=== PATIENT | female | born 1950 | race Caucasian/White ===

== ENCOUNTER → 2017-04-11 | Outpatient (CLI) | payer MEDICARE ==
--- NOTE | 2017-04-11 10:43 | MM ---
Reason for exam: follow-up at short interval from prior study. Last mammogram was performed 6 months ago. History: Patient is postmenopausal. Family history of premenopausal breast cancer in sister at age 46. Cyst aspiration of both breasts, 2000. Took hormonal contraceptives for 6 years. Took estrogen for 4 years beginning at age 47. Took progesterone for 4 years beginning at age 47. Physical Findings: Nurse did not find any significant physical abnormalities on exam. MG 3D Diag Mammo W/Cad RT CC, MLO, and LM view(s) were taken of the right breast. Prior study comparison: October 06, 2016, right breast MG 3d work up w/cad RT. September 22, 2016, bilateral MG 3d screening mammo w/cad. The breast tissue is heterogeneously dense. This may lower the sensitivity of mammography. Stable benign calcifications. These results were verbally communicated with the patient and result sheet given to the patient on 04/11/17. ASSESSMENT: Benign, BI-RAD 2 RECOMMENDATION: Return to routine screening mammogram schedule for both breasts. Back on schedule.
== END | disposition home or self-care (01) ==
LOC: RADMAMWWP 09:34
PROVIDERS: ATTEND Internal Medicine
DX: R92.8 Other abnormal and inconclusive findings on diagnostic imaging of breast (principal)
CPT/HCPCS: G0206; G0279

== ENCOUNTER → 2019-02-26 | Outpatient (CLI) | payer MEDICARE ==
--- NOTE | 2019-02-26 15:40 | BD ---
EXAMINATION TYPE: Axial Bone Density DATE OF EXAM: 02/26/2019 COMPARISON: 2016 CLINICAL HISTORY: Postmenopausal female. Osteoporosis screening. Height: 64 Weight: 140.1 FRAX RISK QUESTIONS: Alcohol (3 or more units per day): no Family History (Parent hip fracture): no Glucocorticoids (More than 3mos): no (Ex: prednisone, prednisolone, methylprednisolone, dexamethasone, and hydrocortisone). History of Fracture in Adulthood: yes Secondary Osteoporosis: 1. Type 1 Diabetes: no 2. Hyperthyroidism: no 3. Menopause before 45: no 4. Malnutrition: no 5. Chronic liver disease: no Rheumatoid Arthritis: no Current Tobacco Use: no RISK FACTORS HISTORY OF: Family History of Osteoporosis: no Active: yes Diet low in dairy products/other sources of calcium: no Postmenopausal woman: age 48 Lost more than 2 inches in height since high school: no MEDICATIONS: blood pressure, vit d, vit b, aspirin thyroid Medications: synthroid How Long: long time Additional History: EXAM MEASUREMENTS: Bone mineral densitometry was performed using the [email or web address] System. Bone mineral density as measured about the Lumbar spine is: ----- L1-L4(G/cm2): 0.977 T Score Values are as follows: ----- L2: -2.4 ----- L3: -2.0 ----- L4: -1.1 ----- L1-L4: -1.7 Bone mineral density has: increased 0.9 % since study of: 09.22.2016 Bone mineral density about the R hip (g/cm2): 0.860 Bone mineral density about the L hip (g/cm2): 0.811 T Score values are as follows: -----R Neck: -1.3 -----L Neck: -1.6 -----R Total: -1.2 -----L Total: -1.4 Bone mineral density has: increased 1.2 % since study of: 09.22.2016 IMPRESSION: Osteopenia (T Score between -2.5 and -1). There is slightly increased risk of fracture and the patient may be considered for treatment. Re-Screen 2-5 years. NOTE: T-SCORE=SD OF THE YOUNG ADULT MEAN.
--- NOTE | 2019-02-27 11:29 | MM ---
Reason for exam: screening (asymptomatic). Last mammogram was performed 1 year and 11 months ago. History: Patient is postmenopausal. Family history of premenopausal breast cancer in sister at age 46. Cyst aspiration of both breasts, 2000. Took hormonal contraceptives for 6 years. Took estrogen for 4 years beginning at age 47. Took progesterone for 4 years beginning at age 47. Physical Findings: A clinical breast exam by your physician is recommended on an annual basis and results should be correlated with mammographic findings. MG 3D Screening Mammo W/Cad Bilateral CC and MLO view(s) were taken. Prior study comparison: April 11, 2017, right breast MG 3d diag mammo w/cad RT. October 06, 2016, right breast MG 3d work up w/cad RT. The breast tissue is heterogeneously dense. This may lower the sensitivity of mammography. Benign appearing bilateral calcifications. No significant changes when compared with prior studies. ASSESSMENT: Benign, BI-RAD 2 RECOMMENDATION: Routine screening mammogram of both breasts in 1 year.
== END | disposition home or self-care (01) ==
LOC: RADMAMWWP 08:46
PROVIDERS: ATTEND Internal Medicine
DX: Z12.31 Encounter for screening mammogram for malignant neoplasm of breast (principal); M85.80 Other specified disorders of bone density and structure, unspecified site; Z78.0 Asymptomatic menopausal state
CPT/HCPCS: 77063; 77067; 77080

== ENCOUNTER → 2020-06-04 | Outpatient (CLI) | payer MEDICARE ==
--- NOTE | 2020-06-07 10:11 | MM ---
Reason for exam: screening (asymptomatic). Last mammogram was performed 1 year and 3 months ago. History: Patient is postmenopausal. Family history of premenopausal breast cancer in sister at age 46. Cyst aspiration of both breasts, 2000. Took hormonal contraceptives for 6 years. Took estrogen for 4 years beginning at age 47. Took progesterone for 4 years beginning at age 47. Physical Findings: A clinical breast exam by your physician is recommended on an annual basis and results should be correlated with mammographic findings. MG 3D Screening Mammo W/Cad Bilateral CC and MLO view(s) were taken. Prior study comparison: February 26, 2019, bilateral MG 3d screening mammo w/cad. April 11, 2017, right breast MG 3d diag mammo w/cad RT. The breast tissue is heterogeneously dense. This may lower the sensitivity of mammography. No significant changes when compared with prior studies. ASSESSMENT: Benign, BI-RAD 2 RECOMMENDATION: Routine screening mammogram of both breasts in 1 year.
== END | disposition home or self-care (01) ==
LOC: RADMAMWWP 08:02
PROVIDERS: ATTEND Internal Medicine
DX: Z12.31 Encounter for screening mammogram for malignant neoplasm of breast (principal)
CPT/HCPCS: 77063; 77067

== ENCOUNTER 2020-10-18 13:43 | Observation (INO) | payer MEDICARE ==
[2020-10-18] MEDS ORDERED: NITROGLYCERIN OINT 1 INCH/GM PACKET TOPICAL STA (14:19)
[2020-10-18] MEDS ORDERED: SODIUM CHLORIDE 0.9% 500 ML 500 ML IV STA (14:19)
[2020-10-18] MEDS ORDERED: ASPIRIN 81 MG PO STA (14:19)
--- NOTE | 2020-10-18 14:30 | ED ---
General Adult HPI - General Chief complaint: Chest Pain Stated complaint: Chest Pain Time Seen by Provider: 10/18/20 14:00 Source: patient, RN notes reviewed, old records reviewed Mode of arrival: ambulatory Limitations: no limitations - History of Present Illness Initial comments: This is a 69-year-old female with past medical history significant for high blood pressure. Patient comes in today complaining that she's had intermittent chest pain for the last 2 weeks per patient states she normally comes and lasts about an hour. Patient states the pain came this morning and his been ongoing ever since. Patient states it's a pressure sensation. Patient denies any difficulty breathing shortest breath. Patient states her heart rate was 140 beats a minute. Patient denies any fever chills or cough. Patient denies abdominal pain patient has nausea vomiting diarrhea. Patient states the pain is still persistent now. Patient denies any swelling to the legs or calf tenderness. - Related Data Home Medications Medication Instructions Recorded Confirmed Aspirin 81 mg PO HS 04/08/15 10/18/20 Cholecalciferol [Vitamin D3] 1,000 unit PO HS 04/08/15 10/18/20 Losartan/Hydrochlorothiazide 1 tab PO DAILY 04/08/15 10/18/20 [Losartan-Hctz 100-12.5 mg Tab] Potassium Chloride ER [K-Dur 10] 10 meq PO HS 04/08/15 10/18/20 Levothyroxine Sodium [Synthroid] 75 mcg PO DAILY 10/18/20 10/18/20 Omeprazole 20 mg PO DAILY PRN 10/18/20 10/18/20 Vitamin B Complex 1 cap PO HS 10/18/20 10/18/20 Allergies Allergy/AdvReac Type Severity Reaction Status Date / Time No Known Allergies Allergy Verified 10/18/20 15:20 Review of Systems ROS Statement: Those systems with pertinent positive or pertinent negative responses have been documented in the HPI. ROS Other: All systems not noted in ROS Statement are negative. Past Medical History Past Medical History: Hypertension, Thyroid Disorder Additional Past Medical History / Comment(s): Arun thyroid disorder History of Any Multi-Drug Resistant Organisms: None Reported Past Surgical History: Section Additional Past Surgical History / Comment(s): breasts aspirations, colonoscopy Past Anesthesia/Blood Transfusion Reactions: No Reported Reaction, Unable to Obtain Past Psychological History: No Psychological Hx Reported Smoking Status: Never smoker Past Alcohol Use History: Occasional Past Drug Use History: None Reported - Past Family History Mother Family Medical History: Cancer Sister(s) Family Medical History: Cancer Additional Family Medical History / Comment(s): breast General Exam - General Exam Comments Initial Comments: GENERAL: Patient is well-developed and well-nourished. Patient is nontoxic and well- hydrated and is in mild distress. ENT: Neck is soft and supple. No significant lymphadenopathy is noted. Oropharynx is clear. Moist mucous membranes. Neck has full range of motion without eliciting any pain. EYES: The sclera were anicteric and conjunctiva were pink and moist. Extraocular movements were intact and pupils were equal round and reactive to light. Eyelids were unremarkable. PULMONARY: Unlabored respirations. Good breath sounds bilaterally. No audible rales rhonchi or wheezing was noted. CARDIOVASCULAR: There is a regular rate and rhythm without any murmurs gallops or rubs. ABDOMEN: Soft and nontender with normal bowel sounds. SKIN: Skin is clear with no lesions or rashes and otherwise unremarkable. NEUROLOGIC: Patient is alert and oriented x3. Cranial nerves II through XII are grossly intact. Motor and sensory are also intact. Normal speech, volume and content. Symmetrical smile. MUSCULOSKELETAL: Normal extremities with adequate strength and full range of motion. LYMPHATICS: No significant lymphadenopathy is noted PSYCHIATRIC: Normal psychiatric evaluation. Limitations: no limitations Course Vital Signs 10/18/20 10/18/20 10/18/20 13:57 14:37 15:08 Temperature 98.2 F Pulse Rate 92 70 Respiratory 18 16 Rate Blood Pressure 155/90 129/73 O2 Sat by Pulse 95 95 99 Oximetry Medical Decision Making - Medical Decision Making EKG shows sinus rhythm with occasional PVC at 95 bpm ME interval is 138 QRS is 82 QT interval 344 QTC is 432. Patient's EKG shows no ST segment elevation or depression but does show multiple PVCs. Chest x-ray shows no acute abnormality - Lab Data Result diagrams: 10/18/20 14:27 10/18/20 14:27 Lab Results 10/18/20 10/18/20 10/18/20 Range/Units 14:27 14:27 14:27 WBC 7.6 (3.8-10.6) k/uL RBC 5.00 (3.80-5.40) m/uL Hgb 15.7 (11.4-16.0) gm/dL Hct 45.7 (34.0-46.0) % MCV 91.4 (80.0-100.0) fL MCH 31.3 (25.0-35.0) pg MCHC 34.3 (31.0-37.0) g/dL RDW 12.4 (11.5-15.5) % Plt Count 249 (150-450) k/uL MPV 7.6 Neutrophils % 63 % Lymphocytes % 24 % Monocytes % 8 % Eosinophils % 2 % Basophils % 1 % Neutrophils # 4.8 (1.3-7.7) k/uL Lymphocytes # 1.9 (1.0-4.8) k/uL Monocytes # 0.6 (0-1.0) k/uL Eosinophils # 0.1 (0-0.7) k/uL Basophils # 0.1 (0-0.2) k/uL PT 10.5 (9.0-12.0) sec INR 1.0 (<1.2) APTT 22.9 (22.0-30.0) sec D-Dimer 0.18 (<0.60) mg/L FEU Sodium 137 (137-145) mmol/L Potassium 3.7 (3.5-5.1) mmol/L Chloride 102 (98-107) mmol/L Carbon Dioxide 29 (22-30) mmol/L Anion Gap 6 mmol/L BUN 17 (7-17) mg/dL Creatinine 0.84 (0.52-1.04) mg/dL Est GFR (CKD-EPI)AfAm 81 (>60 ml/min/1.73 sqM) Est GFR (CKD-EPI)NonAf 70 (>60 ml/min/1.73 sqM) Glucose 103 H (74-99) mg/dL Calcium 9.8 (8.4-10.2) mg/dL Magnesium 2.1 (1.6-2.3) mg/dL Total Bilirubin 0.8 (0.2-1.3) mg/dL AST 27 (14-36) U/L ALT 18 (4-34) U/L Alkaline Phosphatase 67 (38-126) U/L Troponin I (0.000-0.034) ng/mL NT-Pro-B Natriuret Pep pg/mL Total Protein 7.3 (6.3-8.2) g/dL Albumin 4.5 (3.5-5.0) g/dL 10/18/20 10/18/20 Range/Units 14:27 14:27 WBC (3.8-10.6) k/uL RBC (3.80-5.40) m/uL Hgb (11.4-16.0) gm/dL Hct (34.0-46.0) % MCV (80.0-100.0) fL MCH (25.0-35.0) pg MCHC (31.0-37.0) g/dL RDW (11.5-15.5) % Plt Count (150-450) k/uL MPV Neutrophils % % Lymphocytes % % Monocytes % % Eosinophils % % Basophils % % Neutrophils # (1.3-7.7) k/uL Lymphocytes # (1.0-4.8) k/uL Monocytes # (0-1.0) k/uL Eosinophils # (0-0.7) k/uL Basophils # (0-0.2) k/uL PT (9.0-12.0) sec INR (<1.2) APTT (22.0-30.0) sec D-Dimer (<0.60) mg/L FEU Sodium (137-145) mmol/L Potassium (3.5-5.1) mmol/L Chloride (98-107) mmol/L Carbon Dioxide (22-30) mmol/L Anion Gap mmol/L BUN (7-17) mg/dL Creatinine (0.52-1.04) mg/dL Est GFR (CKD-EPI)AfAm (>60 ml/min/1.73 sqM) Est GFR (CKD-EPI)NonAf (>60 ml/min/1.73 sqM) Glucose (74-99) mg/dL Calcium (8.4-10.2) mg/dL Magnesium (1.6-2.3) mg/dL Total Bilirubin (0.2-1.3) mg/dL AST (14-36) U/L ALT (4-34) U/L Alkaline Phosphatase (38-126) U/L Troponin I <0.012 (0.000-0.034) ng/mL NT-Pro-B Natriuret Pep 61 pg/mL Total Protein (6.3-8.2) g/dL Albumin (3.5-5.0) g/dL Critical Care Time Critical Care Time: Yes Total Critical Care Time: 35 Disposition Clinical Impression: Unstable angina pectoris, Rapid heart rate Disposition: ADMITTED IP TO THIS HOSP Referrals: Tk Valiente MD [Primary Care Provider] - 1-2 days Time of Disposition: 16:37
--- NOTE | 2020-10-18 14:45 | XR ---
EXAMINATION TYPE: XR chest 2V DATE OF EXAM: 10/18/2020 COMPARISON: NONE TECHNIQUE: PA and lateral views submitted. HISTORY: Chest pain FINDINGS: The lungs are clear and there is no pneumothorax, pleural effusion, or focal pneumonia. Hyperinflat ion compatible COPD. Curvature of the spine. Heart size normal with no overt failure. Mild degenerati ve change of the spine. Diffuse osteopenia and arthropathy of the shoulder. IMPRESSION: 1. No acute process. Correlate for COPD.
[2020-10-18 14:47] LABS: Basophils # (A) 0.1 k/uL (0-0.2); Basophils % (A) 1 %; Eosinophils # (A) 0.1 k/uL (0-0.7); Eosinophils % (A) 2 %; HCT 45.7 % (34.0-46.0); HGB 15.7 gm/dL (11.4-16.0); Lymphocytes # (A) 1.9 k/uL (1.0-4.8); Lymphocytes % (A) 24 %; MCH 31.3 pg (25.0-35.0); MCHC 34.3 g/dL (31.0-37.0); MCV 91.4 fL (80.0-100.0); Mean Platelet Volume 7.6; Monocytes # (A) 0.6 k/uL (0-1.0); Monocytes % (A) 8 %; Neutrophils # (A) 4.8 k/uL (1.3-7.7); Neutrophils % (A) 63 %; Platelet Count 249 k/uL (150-450); RDW 12.4 % (11.5-15.5); WBC 7.6 k/uL (3.8-10.6)
[2020-10-18 14:53] LABS: Albumin 4.5 g/dL (3.5-5.0); Calcium 9.8 mg/dL (8.4-10.2); Magnesium 2.1 mg/dL (1.6-2.3); Potassium 3.7 mmol/L (3.5-5.1); Total Bilirubin 0.8 mg/dL (0.2-1.3); Total Protein 7.3 g/dL (6.3-8.2)
[2020-10-18 14:58] LABS: D-Dimer 0.18 mg/L FEU (<0.60); Partial Thromboplastin Time 22.9 sec (22.0-30.0); Prothrombin Time 10.5 sec (9.0-12.0)
[2020-10-18] MEDS ORDERED: NITROGLYCERIN SL TABS 0.4 MG TAB SUBLINGUAL PRN (16:37)
[2020-10-18] MEDS ORDERED: HEPARIN SODIUM,PORCINE 5,000 UNIT/ML 1 ML VIAL IV ONE (16:37)
[2020-10-18] MEDS ORDERED: HEPARIN SOD,PORK IN 0.45% NACL 25,000 UNIT in 0.45% NACL 1 250ML.BAG IV SCH (16:45)
[2020-10-18] MEDS ORDERED: SODIUM CHLORIDE 0.9% 1,000 ML IV SCH (17:30)
[2020-10-18] MEDS: NITROGLYCERIN OINT 1 INCH/GM PACKET TOPICAL SCH ×2 (18:09→23:56)
[2020-10-18 18:49] VITALS: RESP 16
[2020-10-19] MEDS ORDERED: PANTOPRAZOLE 40 MG TABLET PO PRN (05:38)
[2020-10-19] MEDS: NITROGLYCERIN OINT 1 INCH/GM PACKET TOPICAL SCH (06:12)
[2020-10-19] MEDS ORDERED: LEVOTHYROXINE 75 MCG TAB PO SCH (06:30)
[2020-10-19 08:42] LABS: Cholesterol 178 mg/dL (<200); HDL Cholesterol 80 mg/dL (40-60); LDL Cholesterol,Calculated 87 mg/dL (0-99); Triglycerides 55 mg/dL (<150)
[2020-10-19] MEDS ORDERED: LOSARTAN 50 MG TAB PO SCH (09:00)
[2020-10-19] MEDS ORDERED: LOSARTAN-HCTZ 50-12.5 MG 1 EACH TAB PO SCH (09:00)
[2020-10-19] MEDS ORDERED: ASPIRIN 325 MG TAB PO SCH (09:00)
--- NOTE | 2020-10-19 09:34 | CONS ---
CONSULTATION Mrs. Miller is a 69-year-old female with history of hypertension who presented with symptoms of chest discomfort. She has been having discomfort in the chest for the last 2 weeks, at times lasting for about an hour, not activity related and not associated with any other symptoms. Yesterday while standing, baking cookies, she had discomfort, became shaky, checked her blood pressure that was elevated for her and subsequently was evaluated and admitted. The patient walks daily for 4 miles and had no associated chest discomfort. She has no dyspnea on exertion. No palpitation. No syncope. No PND, orthopnea, or peripheral edema. She has no prior cardiac history. Initially, she took proton pump inhibitor for about a week without significant change in her symptoms. Her coronary risk factors are remarkable for hypertension, she is nondiabetic, nonsmoker and no prior history of documented hyperlipidemia. MEDICATION: At home include losartan HCT 100-12.5 mg daily, omeprazole on a p.r.n. basis, levothyroxine, aspirin 81 mg daily, vitamin D and vitamin B. REVIEW OF SYSTEMS: RESPIRATORY SYSTEM: She has no documented history of asthma or emphysema or bronchitis. GI SYSTEM: She has prior history of gastric reflux disease. No recent GI bleeding. SYSTEM: No dysuria or hematuria. NERVOUS SYSTEM: No stroke or seizure. PHYSICAL EXAMINATION: A 69-year-old female, alert, oriented, in no apparent distress. Blood pressure 120/70 with a heart rate in the 60s. HEAD: Normocephalic. EYES: Sclerae nonicteric. NECK: Good upstroke, no bruit, no venous distension. LUNGS: Clear to auscultation. HEART: Regular rate and rhythm, S1, S2. No S3, plus S4, no rub. ABDOMEN: Soft, nontender, positive bowel sounds, no organomegaly. EXTREMITIES: No edema, intact pulses. LAB DATA: Revealed troponin less than 0.012. Hemoglobin 15.7, BUN and creatinine 17 and 0.84. EKG revealed a sinus mechanism, rate of 95, frequent single PVCs, no acute ST-segment changes. Chest x-ray revealed no evidence of acute infiltrate. IMPRESSION: 1. Chest discomfort of unclear etiology has some atypical features for ischemic heart disease. 2. History of hypertension. RECOMMENDATION: I would recommend to stop the heparin and nitrate and proceed with a stress echocardiogram and depending on those results, further recommendation will be made. I have discussed those findings with the patient and she has full understanding and agreement. Thank you for this consult. Will follow with you. MMODL / IJN: [id number] /
[2020-10-19 10:08] VITALS: BP 132/69; PULSE 59; TEMP 98
--- NOTE | 2020-10-19 11:34 | ECHOF ---
Referral Reason:cp MEASUREMENTS -------- HEIGHT: 162.6 cm WEIGHT: 86.2 kg BP: RVIDd: 2.7 cm (< 3.3) IVSd: 1.0 cm (0.6 - 1.1) LVIDd: 4.0 cm (3.9 - 5.3) LVPWd: 1.1 cm (0.6 - 1.1) IVSs: 1.3 cm LVIDs: 2.3 cm LVPWs: 1.1 cm LA Diam: 3.1 cm (2.7 - 3.8) LAESV Index (A-L): 22.29 ml/m Ao Diam: 3.3 cm (2.0 - 3.7) AV Cusp: 1.7 cm (1.5 - 2.6) MV EXCURSION: 15.488 mm (> 18.000) MV EF SLOPE: 101 mm/s (70 - 150) EPSS: 0.4 cm MV E Eloy: 0.73 m/s MV DecT: 216 ms MV A Eloy: 0.71 m/s MV E/A Ratio: 1.04 RAP: 5.00 mmHg RVSP: 34.05 mmHg FINDINGS -------- Sinus rhythm. This was a technically adequate study. The left ventricular size is normal. There is mild concentric left ventricular hypertrophy. Overa ll left ventricular systolic function is normal with, an EF between 55 - 60 %. The right ventricle is normal in size. Normal LA size by volume 22+/-6 ml/m2. The right atrial size is normal. The aortic valve is trileaflet, and appears structurally normal. No aortic stenosis or regurgitation. The mitral valve is normal. Mild mitral regurgitation is present. The tricuspid valve appears structurally normal. Mild tricuspid regurgitation present. Right vent ricular systolic pressure is normal at < 35 mmHg. The right ventricular systolic pressure, as measu red by Doppler, is 34.05mmHg. There is no pulmonic regurgitation present. The aortic root size is normal. There is no pericardial effusion. CONCLUSIONS -------- 1. There is mild concentric left ventricular hypertrophy. 2. Overall left ventricular systolic function is normal with, an EF between 55 - 60 %. 3. Normal LA size by volume 22+/-6 ml/m2. 4. The aortic valve is trileaflet, and appears structurally normal. No aortic stenosis or regurgitati on. 5. Mild mitral regurgitation is present. 6. Mild tricuspid regurgitation present. 7. There is no pericardial effusion. ROUNDSMAN: Sonja Young RDCS
--- NOTE | 2020-10-19 13:34 | ECHOS ---
STRESS ECHOCARDIOGRAM LUMASON: N/A Vial INDICATIONS: Chest pressure MEDICATIONS: BASELINE HEART RATE: 64 BASELINE BLOOD PRESSURE: 133/60 MAXIMUM HEART RATE: 162 MAXIMUM BLOOD PRESSURE: 200/66 85% MPHR: 127 100% MPHR: 149 METS: N/A MAXIMUM STAGE REACHED: 3 TOTAL EXERCISE TIME: 7:29 CLINICAL INFORMATION: Baseline rhythm is sinus mechanism, rate of 64, normal axis and intervals. Normal echocardiogram. Baseline blood pressure 133/68 mmHg. Patient exercised on Gary protocol for 7 minute 29 seconds reaching peak rate 162 beats per minute which is above her 100% maximum predicted heart rate. Peak blood pressure 200/66 mmHg. Test was terminated due to fatigue. There was no chest pain. Electrocardiograph monitoring revealed no evidence of diagnostic ischemic ST deviation, rare PVCs with couplets were noted at peak exercise. FINDINGS: Baseline echocardiogram revealed normal wall motion. At peak exercise, there was normal wall motion augmentation with no hypokinesis or dyskinesis. CONCLUSION: 1. Good exercise tolerance with normal echocardiograph response to exercise with occasional PVCs and rare couplets. 2. Normal stress echocardiogram with no evidence of stress-induced ischemia. MMODL / IJN: [id number] /
[2020-10-19] MEDS ORDERED: METOPROLOL SUCCINATE (ER) 25 MG TAB.ER.24H PO SCH (21:00)
[2020-10-19] MEDS ORDERED: POTASSIUM CHLORIDE ER 10 MEQ TAB.ER.PRT PO SCH (21:00)
[2020-10-19] MEDS ORDERED: ASPIRIN 81 MG PO SCH (21:00)
[2020-10-19] MEDS ORDERED: CHOLECALCIFEROL 1,000 UNIT TAB PO SCH (21:00)
[2020-10-19] MEDS ORDERED: NON FORMULARY DRUG (Vitamin B Complex [Vitamin B Complex] 1 EACH Capsule) PO SCH (21:00)
--- NOTE | 2020-10-20 07:36 | P.HPIM ---
History of Present Illness H&P Date: 10/19/20 Chief Complaint: chest pain HISTORY AND PHYSICAL AND DISCHARGE SUMMARY This is a 69 year old female with a previous medical history signi ficant for hypertension and hypertensive cardiovascular disease, hyperlipidemia, hypothyroidism, with prior history of Arun thyroiditis, presented to my office yesterday with increased palpitations and heaviness in her chest for the past week and she became worried so she came to the office and her EKG showed sinus tachycardia, with non specific T waves changes, when she ambulates her cortes rate goes in the 140 rand, she was sent to the ER for evaluation of possible PE vs unstable angina and her D-Dimer came back negative and she was admitted to the hospital for evaluation by cardiology, the rest of abdirahman labs including her Troponins were negative. Patient was seen in consultation by Dr. Zurita. Echocardiogram reveals EF 55 - 60%, mild concentric LVH, Mild MR, mild TR. Patient also underwent stress echocardiogram that was normal and patient was cleared for discharge. Patient was discharged today in stable condition. Review of Systems Constitutional: Denies anorexia, Denies chronic headaches, Denies lethargy, Denies weakness Eyes: denies blurred vision, denies bulging eye, denies decreased vision Ears, nose, mouth and throat: Denies dysphagia, Denies neck lump, Denies sore throat Cardiovascular: Reports chest pain, Reports dyspnea on exertion, Reports rapid heart beat, Reports shortness of breath, Denies decreased exercise tolerance, Denies leg edema, Denies lightheadedness, Denies syncope Respiratory: Denies congestion, Denies cough with sputum, Denies home oxygen, Denies sleep apnea, Denies snoring, Denies wheezing Gastrointestinal: Denies abdominal pain, Denies bloating, Denies BRBPR, Denies excessive gas, Denies loss of appetite, Denies melena, Denies nausea, Denies vomiting Genitourinary: Denies dysuria, Denies nocturia Menstruation: Reports postmenopausal Musculoskeletal: absent: ankle pain, ankle stiffness, ankle swelling, elbow pain, elbow stiffness, elbow swelling, foot pain, foot stiffness, foot swelling, hand pain, hand stiffness, hand swelling, hip pain, hip stiffness, hip swelling, knee pain, knee stiffness, knee swelling, shoulder pain, shoulder stiffness, shoulder swelling, wrist pain, wrist stiffness, wrist swelling Integumentary: Denies pruritus, Denies rash Neurological: Denies numbness, Denies weakness Psychiatric: Denies anxiety, Denies depression Endocrine: Denies fatigue, Denies weight change Past Medical History Past Medical History: GERD/Reflux, Hyperlipidemia, Hypertension, Osteoarthritis (OA), Thyroid Disorder Additional Past Medical History / Comment(s): Arun thyroid disorder History of Any Multi-Drug Resistant Organisms: None Reported Past Surgical History: Section Additional Past Surgical History / Comment(s): breasts aspirations, colonoscopy 2011, 3 C-Sections,right inguinal hernia repair. Past Anesthesia/Blood Transfusion Reactions: No Reported Reaction, Unable to Obtain Past Psychological History: No Psychological Hx Reported Smoking Status: Never smoker Past Alcohol Use History: Occasional Past Drug Use History: None Reported - Past Family History Mother Family Medical History: Cancer (Mother at the age of 64 from ovarian canc er.) Sister(s) Family Medical History: Cancer (Patient has 2 sisters one with breast cancer and one with hypertension.) Additional Family Medical History / Comment(s): breast Brother(s) Family Medical History: Diabetes Mellitus (patient has 2 brothers one with DM2 and the other one is ok.) Father Family Medical History: Vascular Disorder (Father at the age of 45 from brain aneurysm.) Daughter(s) Family Medical History: No Reported History (patient has 2 daughters with no health issues.) Son(s) Family Medical History: No Reported History (one son ok) Medications and Allergies Home Medications Medication Instructions Recorded Confirmed Type Aspirin 81 mg PO HS 04/08/15 10/18/20 History Cholecalciferol [Vitamin D3 (25 1,000 unit PO HS 04/08/15 10/18/20 History Mcg = 1000 Iu)] Losartan/Hydrochlorothiazide 1 tab PO DAILY 04/08/15 10/18/20 History [Losartan-Hctz 100-12.5 mg Tab] Potassium Chloride ER [K-Dur 10] 10 meq PO HS 04/08/15 10/18/20 History Levothyroxine Sodium [Synthroid] 75 mcg PO DAILY 10/18/20 10/18/20 History Omeprazole 20 mg PO DAILY PRN 10/18/20 10/18/20 History Vitamin B Complex 1 cap PO HS 10/18/20 10/18/20 History Metoprolol Succinate (ER) [Toprol 25 mg PO HS #30 tab.er.24h 10/19/20 Rx XL] Allergies Allergy/AdvReac Type Severity Reaction Status Date / Time No Known Allergies Allergy Verified 10/18/20 15:20 Physical Exam Vitals: Vital Signs Temp Pulse Pulse Resp BP BP Pulse Ox 10/18/20 21:00 97.7 F 62 16 132/72 99 10/18/20 18:33 98.1 F 65 16 147/74 97 10/18/20 18:14 97.8 F 74 18 138/74 97 10/18/20 16:38 66 16 136/80 97 10/18/20 15:08 70 16 129/73 99 10/18/20 14:37 95 10/18/20 13:57 98.2 F 92 18 155/90 95 Intake and Output 10/18/20 10/18/20 10/19/20 14:59 22:59 06:59 Intake Total 59.085 Balance 59.085 Intake: Intake, IV Titration 59.085 Amount Heparin Sod,Pork in 0.45% 59.085 NaCl 25,000 unit In 0.45 % NaCl 1 250ml.bag @ 12 UNITS/KG/HR 7.076 mls/hr IV .Q24H [facility] Rx#: [id number] Other: Weight 58.967 kg 58.967 kg Physical Examination: HEENT: head is atraumatic normocephalic pupils were equal round reactive to light and accommodations extra ocular muscle movements were intact. Neck: supple, no JVP. Chest: clear to auscultation bilaterally there is no crakles or wheezes, no chest wall tenderness or intercostal retraction. Heart: First heart sound is depressed, second heart sound is normal there is no gallop or murmur. Abdomen: soft non tender non distended positive bowl sounds. Extremities: there is no edema no calf tenderness DP +2 bilaterally. Neurologic examination: patient is awake alert and oriented X 3 CN II-XII are grossly intact, muscle power 5/5 in bilateral upper and lower extremities, deep tendon reflexes were normal. Results CBC & Chem 7: 10/18/20 14:27 10/18/20 14:27 Labs: Abnormal Lab Results - Last 24 Hours (Table) 10/18/20 10/18/20 Range/Units 14:27 23:01 APTT 118.2 H* (22.0-30.0) sec Glucose 103 H (74-99) mg/dL Thrombosis Risk Factor Assmnt - DVT/VTE Prophylaxis DVT/VTE Prophylaxis: Pharmacologic Prophylaxis ordered - Choose All That Apply Each Risk Factor Represents 2 Points: Age 61-74 years Thrombosis Risk Factor Assessment Total Risk Factor Score: 2 Thrombosis Risk Factor Assessment Level: Low Risk Assessment and Plan Assessment: Assessment and plan: 1. Unstable angina with palpitations.we will discontinue heparin drip as her cardiac enzymes are normal we will arrange for stress echo and if negative she can be discharged home, we will add small dose dose of Toprol XL 25 mg at bedtime post cardiac evaluation. 2. Hypertension and hypertensive cardiovascular disease. we will continue with Losartan 50/12.5 mg orally daily, and we will add Toprl XL 25 mg orally daily. 3. Hyperlipidemia. we will continue with low cholesterol diet and Lipitor 20 mg orally daily. 4. GERD. we will continue with Protonix 40 mg orally daily. 5. Hypothyroidism. we will continue with Synthroid 75 mcg orally daily. 6. Vitamin D deficiency. we will continue with vitamin D supplement 1000 units orally daily. 7. DVT prophylaxis. on heparin drip. 8. GI prophylaxis. we will continue with PPI. 9. Observation.
== END 2020-10-19 14:25 | disposition home or self-care (01) ==
LOC: EC 13:43 → 1SOBS 16:37
PROVIDERS: ADMIT Internal Medicine; ATTEND Internal Medicine
DX: I20.0 Unstable angina (principal); R00.2 Palpitations; R00.0 Tachycardia, unspecified; E06.3 Autoimmune thyroiditis; I11.9 Hypertensive heart disease without heart failure; E78.5 Hyperlipidemia, unspecified; E55.9 Vitamin D deficiency, unspecified; E03.9 Hypothyroidism, unspecified; I49.3 Ventricular premature depolarization; K21.9 Gastro-esophageal reflux disease without esophagitis; M19.90 Unspecified osteoarthritis, unspecified site; Z79.82 Long term (current) use of aspirin; Z79.890 Hormone replacement therapy; Z79.899 Other long term (current) drug therapy; Z80.3 Family history of malignant neoplasm of breast; Z80.41 Family history of malignant neoplasm of ovary; Z82.49 Family history of ischemic heart disease and other diseases of the circulatory system; Z83.3 Family history of diabetes mellitus
CPT/HCPCS: 93005 ×2; 96366 ×3; 96376; 96361; 96365; 99291; 36415; 93306; 93351; 85379; 83880; 80061; 80053; 83735; 84484; 85025; 85610; 85730 ×2; 71046; G0378 ×2; J1644 ×2

== ENCOUNTER 2021-02-15 07:58 | Day surgery (SDC) | payer MEDICARE ==
[2021-02-11 13:16] VITALS: BMI 24.0
[~2021-02-15 07:58] MED LIST: LACTATED RINGERS 1,000 ML IV SCH; LIDOCAINE 1% (10MG/ML) FOR IV START INTRADERMA PRN
[2021-02-15 08:26] VITALS: TEMP 98
[2021-02-15] MEDS ORDERED: LACTATED RINGERS 1,000 ML IV ONE (08:26)
[2021-02-15] MEDS ORDERED: PROPOFOL 10 MG/ML 20 ML VIAL IV ONE (09:12)
[2021-02-15] MEDS ORDERED: LIDOCAINE 1% INJ 10MG/ML (20 ML MDV) ONE (09:12)
--- NOTE | 2021-02-15 09:37 | P.PCN ---
Date of Procedure: 02/15/21 Description of Procedure: BRIEF HISTORY: Patient is a 70-year-old female presenting for outpatient esophagogastroduodenoscopy for evaluation of symptoms of GERD with esophagitis. Previously she had an EGD performed in 2016 with findings of small hiatal hernia and LA grade a reflux esophagitis and gastritis. Previously she was on Prilosec. She has been having episodes of pill-induced dysphagia and epigastric pain with a negative cardiac workup. PROCEDURE PERFORMED: Esophagogastroduodenoscopy with biopsy. PREOPERATIVE DIAGNOSIS: GERD with esophagitis, dysphagia. ESTIMATED BLOOD LOSS: Minimal. IV sedation per anesthesia. PROCEDURE: After informed consent was obtained, the patient was brought into the endoscopy unit. IV sedation was administered by Anesthesia under continuous monitoring. Initially the Olympus GIF-190 video endoscope was inserted into the mouth. Esophagus intubated without any difficulty. It was gradually advanced into the stomach and duodenum and carefully examined. The bulb and the second part of the duodenum appeared normal with biopsies. The scope at this time was withdrawn to the stomach, adequately insufflated with air, and upon careful examination, mucosa of the antrum, body, cardia and the fundus appeared normal, mild scattered erythema suggestive of mild gastritis of the antrum and body with biopsies taken. The scope was then withdrawn into the esophagus. The GE junction was located at 36 cm from the incisors and biopsied. A 3 cm hiatal hernia was noted . The esophagus appeared normal, With mid esophageal biopsies taken in the setting of dysphagia. There were no erosions or ulcerations seen and the patient tolerated the procedure well. IMPRESSION: 1. Mild gastritis . 2. Moderate hiatal hernia. 3. Biopsies of the duodenum, antrum body and GE junction and mid esophagus. RECOMMENDATIONS: The findings of this examination were discussed with the patient .and her . Okay to resume diet. Okay to resume medications. Await pathology from biopsies. Continue daily Nexium therapy.
[2021-02-15 09:48] VITALS: BP 126/69; PULSE 60; RESP 16
== END 2021-02-15 10:05 | disposition home or self-care (01) ==
LOC: ORWHC2ENDO 07:58
PROVIDERS: ATTEND Internal Medicine
DX: K29.50 Unspecified chronic gastritis without bleeding (principal); K44.9 Diaphragmatic hernia without obstruction or gangrene; K21.00 Gastro-esophageal reflux disease with esophagitis, without bleeding; R13.10 Dysphagia, unspecified; I10 Essential (primary) hypertension; E07.9 Disorder of thyroid, unspecified; Z79.890 Hormone replacement therapy; Z79.899 Other long term (current) drug therapy
CPT/HCPCS: 88305; 43239; J2001; J2704

== ENCOUNTER → 2021-06-22 | Outpatient (CLI) | payer MEDICARE ==
--- NOTE | 2021-06-22 16:04 | BD ---
EXAMINATION TYPE: Axial Bone Density DATE OF EXAM: 06/22/2021 COMPARISON: 02.26.2019 CLINICAL HISTORY: 70 YR OLD FEMALE...ICD-10 CODE: M81.0 OSTEOPOROSIS Height: 62.4 Weight: 132 FRAX RISK QUESTIONS: History of Fracture in Adulthood: YES RISK FACTORS HISTORY OF: FOOT FX AN ADULT Postmenopausal woman: YES, AT AGE 50 YRS OLD Take estrogen and/or progesterone medications: YES, IN THE PAST FOR ABOUT 2-3 YRS Hyperparathyroidism: YES, NODULE Adrenal Insufficiency: NO MEDICATIONS: Thyroid Medications: YES, FOR ABOUT 10 YRS Additional Medications: BP MEDS, REFLUX MEDS, VIT D Additional History: ROSA'S DISEASE, REFLUX, HYPERTENSION, EXAM MEASUREMENTS: Bone mineral densitometry was performed using the SEAT 4a System. Bone mineral density as measured about the Lumbar spine is: ----- L1-L4(G/cm2): 0.902 T Score Values are as follows: ----- L1: -2.1 ----- L2: -3.3 ----- L3: -2.7 ----- L4: -1.6 ----- L1-L4: -2.3 Bone mineral density has: Decreased -7.8% since study of: 02.26.2019 Bone mineral density about the R hip (g/cm2): 0.859 Bone mineral density about the L hip (g/cm2): 0.835 T Score values are as follows: -----R Neck: -1.0 -----L Neck: -1.7 -----R Total: -1.2 -----L Total: -1.4 Bone mineral density has: Decreased -0.4% since study of: 02.26.2019 FRAX%s: THERE IS A 17.0% CHANCE FOR A MAJOR OSTEOPOROTIC FX AND A 3.1% FOR HIP......PROBABILITY F OR FX IN 10 YRS TIME IMPRESSION: Osteopenia (T Score between -2.5 and -1). There is slightly increased risk of fracture and the patient may be considered for treatment. Re-Screen 2-5 years. NOTE: T-SCORE=SD OF THE YOUNG ADULT MEAN.
== END | disposition home or self-care (01) ==
LOC: RADBDWWP 07:41
PROVIDERS: ATTEND Internal Medicine
DX: M85.89 Other specified disorders of bone density and structure, multiple sites (principal)
CPT/HCPCS: 77080

== ENCOUNTER → 2021-08-02 | Outpatient (CLI) | payer MEDICARE ==
--- NOTE | 2021-08-03 13:56 | MM ---
Reason for exam: screening (asymptomatic). Last mammogram was performed 1 year and 2 months ago. History: Patient is postmenopausal. Family history of premenopausal breast cancer in sister at age 46. Cyst aspiration of both breasts, 2000. Took hormonal contraceptives for 6 years. Took estrogen for 4 years beginning at age 47. Took progesterone for 4 years beginning at age 47. Physical Findings: A clinical breast exam by your physician is recommended on an annual basis and results should be correlated with mammographic findings. MG 3D Screening Mammo W/Cad Bilateral CC and MLO view(s) were taken. Prior study comparison: June 04, 2020, bilateral MG 3d screening mammo w/cad. February 26, 2019, bilateral MG 3d screening mammo w/cad. April 11, 2017, right breast MG 3d diag mammo w/cad RT. The breast tissue is heterogeneously dense. This may lower the sensitivity of mammography. Finding: There are typically benign round calcifications in both breasts. There is no discrete abnormality. Grouped indistinct calcifications right upper outer quadrant. New finding and increase in number of calcifications since June 04, 2020, February 26, 2019, and April 11, 2017. ASSESSMENT: Incomplete: need additional imaging evaluation, BI-RAD 0 RECOMMENDATION: Special view mammogram of the right breast. [facility] will attempt to contact patient to return for supplemental views.
== END | disposition home or self-care (01) ==
LOC: RADMAMWWP 12:31
PROVIDERS: ATTEND Internal Medicine
DX: Z12.31 Encounter for screening mammogram for malignant neoplasm of breast (principal); Z78.0 Asymptomatic menopausal state; Z80.3 Family history of malignant neoplasm of breast; Z79.3 Long term (current) use of hormonal contraceptives
CPT/HCPCS: 77063; 77067

== ENCOUNTER → 2021-08-10 | Outpatient (CLI) | payer MEDICARE ==
--- NOTE | 2021-08-10 11:20 | MM ---
Reason for exam: additional evaluation requested from abnormal screening. Last mammogram was performed less than 1 month ago. History: Patient is postmenopausal. Family history of premenopausal breast cancer in sister at age 46. Cyst aspiration of both breasts, 2000. Took hormonal contraceptives for 6 years. Took estrogen for 4 years beginning at age 47. Took progesterone for 4 years beginning at age 47. Physical Findings: Nurse did not find any significant physical abnormalities on exam. MG 3D Work Up W/Cad RT CC with magnification, LM with magnification, and LM view(s) were taken of the right breast. Prior study comparison: August 02, 2021, bilateral MG 3d screening mammo w/cad. June 04, 2020, bilateral MG 3d screening mammo w/cad. February 26, 2019, bilateral MG 3d screening mammo w/cad. The breast tissue is heterogeneously dense. This may lower the sensitivity of mammography. Large grouped/regional faint calcifications right posterior upper outer quadrant, calcifications become less defined on magnification views. Faint calcifications seen to have been present on prior exam. A 6 month follow up recommended. These results were verbally communicated with the patient and result sheet given to the patient on 08/10/21. ASSESSMENT: Probably benign, BI-RAD 3 RECOMMENDATION: Follow-up diagnostic mammogram of the right breast in 6 months.
== END | disposition home or self-care (01) ==
LOC: RADMAMWWP 10:13
PROVIDERS: ATTEND Internal Medicine
DX: R92.1 Mammographic calcification found on diagnostic imaging of breast (principal); Z78.0 Asymptomatic menopausal state; Z80.3 Family history of malignant neoplasm of breast; Z79.3 Long term (current) use of hormonal contraceptives
CPT/HCPCS: 77065; G0279; 77061

== ENCOUNTER → 2022-01-31 | Outpatient (CLI) | payer MEDICARE ==
--- NOTE | 2022-01-31 10:31 | MM ---
Reason for exam: follow-up at short interval from prior study. Last mammogram was performed 6 months ago. History: Patient is postmenopausal. Family history of premenopausal breast cancer in sister at age 46. Cyst aspiration of both breasts, 2000. Took hormonal contraceptives for 6 years. Took estrogen for 4 years beginning at age 47. Took progesterone for 4 years beginning at age 47. Physical Findings: A clinical breast exam by your physician is recommended on an annual basis and results should be correlated with mammographic findings. MG 3D Diag Mammo W/Cad RT CC and MLO view(s) were taken of the right breast. Prior study comparison: August 10, 2021, right breast MG 3d work up w/cad RT. August 02, 2021, bilateral MG 3d screening mammo w/cad. June 04, 2020, bilateral MG 3d screening mammo w/cad. February 26, 2019, bilateral MG 3d screening mammo w/cad. April 11, 2017, right breast MG 3d diag mammo w/cad RT. The breast tissue is heterogeneously dense. This may lower the sensitivity of mammography. Regional calcifications posterior upper outer quadrant left breast stable for 6 months, possibly even larger. Oval subareolar nodule CC view slightly better seen but stable in size. These results were verbally communicated with the patient and result sheet given to the patient on 01/31/22. ASSESSMENT: Probably benign, BI-RAD 3 RECOMMENDATION: Follow-up diagnostic mammogram of both breasts in 6 months.
== END | disposition home or self-care (01) ==
LOC: RADMAMWWP 08:50
PROVIDERS: ATTEND Internal Medicine
DX: R92.8 Other abnormal and inconclusive findings on diagnostic imaging of breast (principal); Z78.0 Asymptomatic menopausal state; Z80.3 Family history of malignant neoplasm of breast
CPT/HCPCS: 77065; G0279; 77061

== ENCOUNTER → 2022-03-28 | Outpatient (CLI) | payer MEDICARE ==
--- NOTE | 2022-03-28 21:29 | US ---
EXAMINATION TYPE: US carotid duplex BILAT DATE OF EXAM: 03/28/2022 COMPARISON: NONE CLINICAL HISTORY: 71-year-old female I65.23 OCCLUSION AND STENOSIS OF BILATERAL CAROTID. TECHNIQUE: Carotid duplex ultrasound examination. Indirect Doppler criteria was utilized. EXAM MEASUREMENTS: RIGHT: Peak Systolic Velocity (PSV) cm/sec ----- Right CCA: 80.9 ----- Right ICA: 92.1 ----- Right ECA: 100.8 ICA/CCA ratio: 1.1 RIGHT: End Diastole cm/sec ----- Right CCA: 17.1 ----- Right ICA: 27.8 ----- Right ECA: 12.1 LEFT: Peak Systolic Velocity (PSV) cm/sec ----- Left CCA: 72.1 ----- Left ICA: 81.6 ----- Left ECA: 61.6 ICA/CCA ratio: 1.1 LEFT: End Diastole cm/sec ----- Left CCA: 14.9 ----- Left ICA: 24.8 ----- Left ECA: 8.0 VERTEBRALS (direction of flow): Right Vertebral: Antegrade Left Vertebral: Antegrade Rhythm: Arrhythmia Coil Maker notes: No significant stenosis IMPRESSION: 1. No hemodynamically significant internal carotid artery stenosis on either side. 2. Note that the mechanical energy engineer indicates visualizing an aberrant cardiac rhythm during a portion of the study. Criteria for Assigning % of Stenosis / Diameter reduction (Estimation based on the indirect measurements of the internal carotid artery velocities (ICA PSV). 1. Normal (no stenosis)=ICA PSV < 125 cm/s: ratio < 2.0: ICA EDV<40 cm/s. 2. Less than 50% stenosis=ICA PSV < 125 cm/s: ratio < 2.0: ICA EDV<40 cm/s. 3. 50 to 69% stenosis=ICA PSV of 125 to 230 cm/s: ration 2.0 ? 4.0: ICA EDV 40-100 cm/s. 4. Greater than 70% stenosis to near occlusion= ICA PSV > 230 cm/s: ratio > 4.0: ICA EDV > 100 cm/s. 5. Near occlusion= ICA PSV velocities may be low or undetectable: variable ratio and ICA EDV. 6. Total occlusion=unable to detect flow.
== END | disposition home or self-care (01) ==
LOC: RADUSWWP 13:32
PROVIDERS: ATTEND Internal Medicine
DX: I65.23 Occlusion and stenosis of bilateral carotid arteries (principal)
CPT/HCPCS: 93880

== ENCOUNTER → 2022-09-20 | Outpatient (CLI) | payer MEDICARE ==
--- NOTE | 2022-09-25 08:17 | MM ---
Reason for Exam: Clinical finding. Last mammogram was performed 1 year(s) and 2 month(s) ago. Patient History: Menarche at age 11. First Full-Term at age 26. Postmenopausal. Estrogen for 4 years from age 47 until age 51. Progesterone for 4 years from age 47 until age 51. Patient used Hormonal Contraceptives for 6 years. 2000, Bilateral Cyst Aspiration. Sister had breast cancer, age 46. Risk Values: Anamika 5 year model risk: 3.5%. NCI Lifetime model risk: 8.4%. Tissue Density: The breast tissue is heterogeneously dense. This may lower the sensitivity of mammography. Findings: Analyzed By CAD. A few small scattered benign-appearing round calcifications throughout the bilateral breasts are redemonstrated. No new distortion or suspicious mass in either breast. Overall Assessment: Benign, BI-RAD 2 Management: Screening Mammogram of both breasts in 1 year. A clinical breast exam by your physician is recommended on an annual basis and results should be correlated with mammographic findings. This exam should not preclude additional follow-up of suspicious palpable abnormalities. Results were given to the patient verbally at the time of exam. Electronically signed and approved by: Andi Salazar M.D.
== END | disposition home or self-care (01) ==
LOC: RADMAMWWP 07:30
PROVIDERS: ATTEND Internal Medicine
DX: R92.8 Other abnormal and inconclusive findings on diagnostic imaging of breast (principal); Z78.0 Asymptomatic menopausal state; Z80.3 Family history of malignant neoplasm of breast; Z98.890 Other specified postprocedural states
CPT/HCPCS: 77066; G0279; 77062

== ENCOUNTER → 2023-03-28 | Outpatient (CLI) | payer MEDICARE ==
--- NOTE | 2023-03-29 10:07 | CT ---
EXAMINATION TYPE: CT chest abdomen wo/w con DATE OF EXAM: 03/28/2023 COMPARISON: None HISTORY: Abnormal findings on right lung during cardiac scan. CT DLP: 765.3 mGycm Automated exposure control for dose reduction was used. CONTRAST: Performed without and with IV Contrast, patient injected with 80 cc mL of Isovue 300. FINDINGS: There is biapical pleural thickening. There is a area of nodular irregular density within the right l ower lobe measuring 1.8 cm. There is no pleural effusion or pneumothorax. There is no evidence of pathologic adenopathy. Atherosclerotic change aorta which measures a maximal dimension of 3.2 cm. Mild coronary artery calcification. Heart size normal. Hypertrophic and degenerative changes of the spine. There are bilateral simple appearing renal cysts. Diverticulosis of the colon noted. No evidence of b owel obstruction. Appendix normal. Gallbladder demonstrates no definite definite gallstones. There is mild intrahepatic biliary ductal dilation. Spleen homogeneous. There is a small hiatal hernia. Pancr eas normal. Atherosclerotic change of the aorta. No free fluid. No evidence of pathologic adenopathy within the a bdomen or pelvis. IMPRESSION: 1. There is a 1.8 cm irregular area of consolidation or mass involving the right lung base. This coul d be on the basis of pneumonia. A neoplastic process not excluded. Correlate clinically. A PET scan c ould be obtained for further evaluation particularly if the patient is not symptomatic for pneumonia. 2. Small hiatal hernia. 3. Bilateral simple renal cyst Bosniak classification 1 4. Correlate for constipation 5. Diverticulosis of the colon
== END | disposition home or self-care (01) ==
LOC: RADCTMAIN 08:14
PROVIDERS: ATTEND Internal Medicine
DX: K44.9 Diaphragmatic hernia without obstruction or gangrene (principal); N28.1 Cyst of kidney, acquired; K57.30 Diverticulosis of large intestine without perforation or abscess without bleeding
CPT/HCPCS: 82565; 84520; 71270; 74170; 36415; Q9967

== ENCOUNTER → 2023-04-27 | Outpatient (CLI) | payer MEDICARE ==
--- NOTE | 2023-04-27 14:31 | PE ---
EXAMINATION TYPE: PET CT fusion skull to thigh DATE OF EXAM: 04/27/2023 CLINICAL INDICATION:Female, 72 years old with history of R91.8; TECHNIQUE: Following the intravenous administration of 10.0 mCi of F-18 FDG, whole body images are performed from the skull base to the midthigh. Images are reviewed on the computer in the coronal, a xial, and sagittal planes. Reconstructed rotating images are created on independent workstation and reviewed on the computer. A non-contrast CT is performed in conjunction with the PET scan. Glucose level 78 mg/dL COMPARISON: CT CT 03/28/2023, 12/25/2022, PET/CT None, FINDINGS: Mediastinal SUV mean is 1.5. Hepatic parenchyma SUV mean is 2.0. SKULL BASE AND NECK: No suspicious radiotracer activity. CHEST, MEDIASTINUM, AND HILAR REGION: Interval decrease in solid appearance of the right lower lung i n the area of concern. This now has a flattened appearance. No suspicious FDG activity within the carrie gs. Small right upper lobe linear nodular like density measuring 2 mm image 61 is below threshold first p et/CT. ABDOMEN AND PELVIS: No suspicious radiotracer activity. OSSEOUS STRUCTURES: No suspicious radiotracer activity. OTHER CT: Bilaterally aphakia. Atherosclerosis of the arterial vasculature including the carotid bifu rcations. Left peripherally calcified thyroid nodule. Atherosclerosis of the coronary arteries is mil d. Left renal cyst. Scattered colonic diverticula. Scoliosis changes. Multilevel disc degeneration ch anges throughout the spine. IMPRESSION: No suspicious radiotracer activity. Area of concern in the right lower lung has resolved on today's imaging there is now streaky with a flat like appearance suggesting atelectasis on prior imaging.
== END | disposition home or self-care (01) ==
LOC: RADPETMAIN 11:49
PROVIDERS: ATTEND Internal Medicine
DX: R91.8 Other nonspecific abnormal finding of lung field (principal)
CPT/HCPCS: 78815; A9552

== ENCOUNTER → 2023-09-25 | Outpatient (CLI) | payer MEDICARE ==
--- NOTE | 2023-09-25 09:00 | MM ---
Reason for Exam: Screening (asymptomatic). Last screening mammogram was performed 12 month(s) ago. Patient History: Menarche at age 11. First Full-Term at age 26. Postmenopausal. Estrogen for 4 years from age 47 until age 51. Progesterone for 4 years from age 47 until age 51. Patient used Hormonal Contraceptives for 6 years. 2000, Bilateral Cyst Aspiration. Sister had breast cancer, age 46. Risk Values: Anamika 5 year model risk: 3.5%. NCI Lifetime model risk: 7.9%. Prior Study Comparison: 08/10/2021 Right Diagnostic Mammogram, [facility]. 01/31/2022 Right Diagnostic Mammogram, [facility]. 09/20/2022 Bilateral MG 3D diag mammo w/cad [facility], [facility]. Tissue Density: The breast tissue is heterogeneously dense. This may lower the sensitivity of mammography. Findings: Analyzed By CAD. There is no suspicious group of microcalcifications or new suspicious mass in either breast. Benign calcifications within both breasts. Overall Assessment: Benign, BI-RAD 2 Management: Screening Mammogram of both breasts in 1 year. A clinical breast exam by your physician is recommended on an annual basis and results should be correlated with mammographic findings. Note on Anamika scores and lifetime risk: 1. A Anamika score greater than 3% is considered moderate risk. If this is the case, consider specialist referral to assess eligibility for a risk reducing agent. If overall lifetime risk for the development of breast cancer is 20% or higher, the patient may qualify for future screening with alternating mammogram and breast MRI. Electronically signed and approved by: Farhan Evans D.O.
--- NOTE | 2023-09-25 09:07 | BD ---
EXAMINATION TYPE: Axial Bone Density DATE OF EXAM: 09/25/2023 CLINICAL HISTORY: 72 years old Female. ICD-10 CODE: , M85.851 Height: 64.0 inches Weight: 130.2 pounds FRAX RISK QUESTIONS: Alcohol (3 or more units per day): no Family History (Parent hip fracture): no Glucocorticoids (More than 3mos): no (Ex: prednisone, prednisolone, methylprednisolone, dexamethasone, and hydrocortisone). History of Fracture in Adulthood: yes Secondary Osteoporosis: 1. Type 1 Diabetes: no 2. Hyperthyroidism: no 3. Menopause before 45: no 4. Malnutrition: no 5. Chronic liver disease: no Rheumatoid Arthritis: no Current Tobacco Use: no RISK FACTORS HISTORY OF: Surgery to Spine/Hip(right/left)/Wrist (right/left): no Family History of Osteoporosis: no Active: yes Diet low in dairy products/other sources of calcium: no Postmenopausal woman: yes Lost more than 2 inches in height since high school: no MEDICATIONS: Thyroid Medications: synthroid How Lon years Additional History: EXAM MEASUREMENTS: Bone mineral densitometry was performed using the [employer] System. Bone mineral density as measured about the Lumbar spine is: ----- L1-L4(G/cm2): 0.955 T Score Values are as follows: ----- L1: -2.5 ----- L2: -2.0 ----- L3: -2.0 ----- L4: -0.5 ----- L1-L4: -1.9 Z Score Values are as follows: ----- L1: -0.6 ----- L2: -0.8 ----- L3: -0.1 ----- L4: 1.4 ----- L1-L4: 0.1 Bone mineral density has: increased 5.9 % since study of: 06.22.2021 Bone mineral density about the R hip (g/cm2): 0.853 Bone mineral density about the L hip (g/cm2): 0.829 T Score values are as follows: -----R Neck: -1.1 -----L Neck: -1.5 -----R Total: -1.2 -----L Total: -1.4 Z Score values are as follows: -----R Neck: 1.0 -----L Neck: 0.6 -----R Total: 0.6 -----L Total: 0.4 Bone mineral density has: decreased -0.7 % since study of: 8.4.2020 FRAX%s: The graph provided illustrates a 15.8% chance for a major osteoporotic fx and a 3.0% chance f or the hips probability for fx in 10 years time. IMPRESSION: Osteopenia (T Score between -2.5 and -1). There is slightly increased risk of fracture and the patient may be considered for treatment. Re-Screen 2-5 years. NOTE: T-SCORE=SD OF THE YOUNG ADULT MEAN.
== END ==
LOC: RADMAMWWP 07:54
PROVIDERS: ATTEND Internal Medicine
DX: Z12.31 Encounter for screening mammogram for malignant neoplasm of breast (principal); M85.89 Other specified disorders of bone density and structure, multiple sites; Z78.0 Asymptomatic menopausal state; Z80.3 Family history of malignant neoplasm of breast
CPT/HCPCS: 77063; 77067; 77080

== ENCOUNTER → 2024-08-01 | Outpatient (CLI) | payer MEDICARE ==
--- NOTE | 2024-08-01 08:35 | USB ---
Reason for Exam: Clinical finding. Patient History: Menarche at age 11. First Full-Term at age 26. Postmenopausal. Estrogen for 4 years from age 47 until age 51. Progesterone for 4 years from age 47 until age 51. Patient used Hormonal Contraceptives for 6 years. 2000, Bilateral Cyst Aspiration. Sister had breast cancer, age 46. Risk Values: Anamika 5 year model risk: 3.5%. NCI Lifetime model risk: 7.4%. Technique: Method: Whole Breast Handheld. Prior Study Comparison: 01/31/2022 Right Diagnostic Mammogram, [facility]. 09/20/2022 Bilateral MG 3D diag mammo w/cad [facility], [facility]. 09/25/2023 Bilateral MG 3D screening mammo w/cad, [facility]. Findings: The whole breast of the left breast, the axilla of the left breast and the retroareolar of the left breast were scanned. No solid or cystic masses are identified. Mildly prominent ducts noted. Normal-appearing left axillary lymph node. Manage clinically. Overall Assessment: Benign, BI-RAD 2 Management: Screening Mammogram of both breasts in 2 months. A clinical breast exam by your physician is recommended on an annual basis and results should be correlated with mammographic findings. This exam should not preclude additional follow-up of suspicious palpable abnormalities. Results were given to the patient verbally at the time of exam. Electronically signed and approved by: Campos Machuca M.D. Radiologis
== END | disposition home or self-care (01) ==
LOC: RADUSWWP 08:11
PROVIDERS: ATTEND Internal Medicine
DX: N64.4 Mastodynia

== ENCOUNTER → 2024-09-23 | Outpatient (CLI) | payer MEDICARE ==
--- NOTE | 2024-09-24 10:52 | CA ---
Transthoracic Echo Report Name: Elizabeth Miller Age: 73 Gender: F : 1950 Exam Date: 09/23/2024 15:03 Exam Location: [facility] Ht (in): 64 Wt (lb): 139 Ordering Physician: Tk Valiente MD Attending/Referring Phys: Rand Cementer Tanesha Sky RDCS Procedure CPT: Indications: I25.10 Cardiac Hx: Technical Quality: Good Contrast 1: Total Dose (mL): Contrast 2: Total Dose (mL): MEASUREMENTS (Male / Female) Normal Values 2D ECHO LV Diastolic Diameter PLAX 4.3 cm 4.2 - 5.9 / 3.9 - 5.3 cm LV Systolic Diameter PLAX 2.7 cm IVS Diastolic Thickness 1.0 cm 0.6 - 1.0 / 0.6 - 0.9 cm LVPW Diastolic Thickness 1.0 cm 0.6 - 1.0 / 0.6 - 0.9 cm LV Relative Wall Thickness 0.5 RV Internal Dim ED PLAX 3.3 cm LA Systolic Diameter LX 3.2 cm 3.0 - 4.0 / 2.7 - 3.8 cm LV Diastolic Volume MOD 4C 69.2 cm??? LV Systolic Volume MOD 4C 31.3 cm??? LV Ejection Fraction MOD 4C 54.7 % LV Cardiac Index MOD 4C 1473.3 cm???/min???m??? LV Diastolic Length 4C 6.5 cm LV Systolic Length 4C 5.1 cm LV Diastolic Volume MOD 2C 45.8 cm??? LV Systolic Volume MOD 2C 20.5 cm??? LV Ejection Fraction MOD 2C 55.2 % LV Cardiac Index MOD 2C 984.3 cm???/min???m??? LV Diastolic Length 2C 6.7 cm LV Systolic Length 2C 5.3 cm M-MODE Aortic Root Diameter MM 3.0 cm AV Cusp Separation MM 1.8 cm DOPPLER AV Peak Velocity 133.6 cm/s AV Peak Gradient 7.1 mmHg Mitral E Point Velocity 85.3 cm/s Mitral A Point Velocity 105.8 cm/s Mitral E to A Ratio 0.8 MV Deceleration Time 211.7 ms MV E' Velocity 9.4 cm/s Mitral E to MV E' Ratio 9.1 TR Peak Velocity 202.3 cm/s TR Peak Gradient 16.4 mmHg Right Ventricular Systolic Press 26.5 mmHg FINDINGS Left Ventricle Left ventricular ejection fraction is estimated at 55-60 %. Left ventricular cavity size normal. Left ventricular wall thickness normal. Normal left ventricular wall motion. Right Ventricle Normal right ventricular size and function. Right ventricular systolic pressure within normal limits. Right Atrium Normal right atrial size. No right atrial thrombus or mass seen. Left Atrium Normal left atrial size. No left atrial thrombus or mass present. Mitral Valve Structurally normal mitral valve. Mild mitral regurgitation. Aortic Valve Trileaflet aortic valve. No aortic valve stenosis or regurgitation. Tricuspid Valve Structurally normal tricuspid valve. Mild tricuspid regurgitation. Pulmonic Valve Structurally normal pulmonic valve. Trace pulmonic regurgitation. Pericardium No pericardial or pleural effusion. Aorta Normal size aortic root and proximal ascending aorta. CONCLUSIONS Normal LV systolic function Previewed by: Dr. Horace Blanco MD (Electronically Signed) Final Date: 24 September 2024 10:51
--- NOTE | 2024-09-24 16:28 | US ---
EXAMINATION TYPE: US carotid duplex BILAT DATE OF EXAM: 09/23/2024 COMPARISON: 03/28/22 CLINICAL INDICATION: Female, 73 years old with history of I25.10 ATHSCL HEART DISEASE I65.23 STENOSIS ; heart disease Additional History: .... TECHNIQUE: Grayscale, color Doppler and spectral Doppler evaluation of the bilateral carotid systems and vertebral arteries.Indirect Doppler criteria was utilized. FINDINGS: EXAM MEASUREMENTS: RIGHT: Peak Systolic Velocity (PSV) cm/sec ----- Right CCA: 114.7 ----- Right ICA: 108.2 ----- Right ECA: 104.3 ICA/CCA ratio: 0.9 RIGHT: End Diastole cm/sec ----- Right CCA: 18.9 ----- Right ICA: 16.3 ----- Right ECA: 11.1 LEFT: Peak Systolic Velocity (PSV) cm/sec ----- Left CCA: 97.4 ----- Left ICA: 130.2 ----- Left ECA: 72.1 ICA/CCA ratio: 1.3 LEFT: End Diastole cm/sec ----- Left CCA: 17.1 ----- Left ICA: 30.0 ----- Left ECA: 10.6 VERTEBRALS (direction of flow): Right Vertebral: Antegrade Left Vertebral: Antegrade Rhythm: Normal [employer] DEVELOPMENT NOTES: No plaque seen bilaterally. No elevated velocities seen IMPRESSION: 1. Mild wall thickening with mild increased velocity in the left internal carotid artery suggesting m ild narrowing around 50%. Plaquing correlate with this finding however is not evident. Criteria for Assigning % of Stenosis / Diameter reduction (Estimation based on the indirect measurements of the internal carotid artery velocities (ICA PSV). 1. Normal (no stenosis)=ICA PSV < 125 cm/s: ratio < 2.0: ICA EDV<40 cm/s. 2. Less than 50% stenosis=ICA PSV < 125 cm/s: ratio < 2.0: ICA EDV<40 cm/s. 3. 50 to 69% stenosis=ICA PSV of 125 to 230 cm/s: ration 2.0 ? 4.0: ICA EDV 40-100 cm/s. 4. Greater than 70% stenosis to near occlusion= ICA PSV > 230 cm/s: ratio > 4.0: ICA EDV > 100 cm/s. 5. Near occlusion= ICA PSV velocities may be low or undetectable: variable ratio and ICA EDV. 6. Total occlusion=unable to detect flow. [facility], , 09/24/2024 4:26 PM
== END | disposition home or self-care (01) ==
LOC: RADUSWWP 14:23
PROVIDERS: ATTEND Internal Medicine
DX: I25.10 Atherosclerotic heart disease of native coronary artery without angina pectoris (principal); I65.23 Occlusion and stenosis of bilateral carotid arteries
CPT/HCPCS: 93306; 93880

== ENCOUNTER → 2024-09-26 | Outpatient (CLI) | payer MEDICARE ==
--- NOTE | 2024-10-03 11:00 | MM ---
Reason for Exam: Screening (asymptomatic). Last screening mammogram was performed 12 month(s) ago. Patient History: Menarche at age 11. First Full-Term at age 26. Postmenopausal. Estrogen for 4 years from age 47 until age 51. Progesterone for 4 years from age 47 until age 51. Patient used Hormonal Contraceptives for 6 years. 2000, Bilateral Cyst Aspiration. Sister had breast cancer, age 46. Risk Values: Anamika 5 year model risk: 3.5%. NCI Lifetime model risk: 7.4%. Prior Study Comparison: 01/31/2022 Right Diagnostic Mammogram, [facility]. 09/20/2022 Bilateral MG 3D diag mammo w/cad [facility], [facility]. 09/25/2023 Bilateral MG 3D screening mammo w/cad, [facility]. Tissue Density: The breasts are heterogeneously dense, which may obscure small masses. Findings: Analyzed By CAD. Right breast: There is no suspicious group of microcalcifications or new suspicious mass. Benign-appearing calcifications right breast. Left breast: There is no suspicious group of microcalcifications or new suspicious mass. Benign-appearing calcifications left breast. Overall Assessment: Benign, BI-RAD 2 Management: Screening Mammogram of both breasts in [address] [facility] will attempt to contact patient to return for supplemental views and ultrasound if indicated. Patient should continue monthly self-breast exams. A clinical breast exam by your physician is recommended on an annual basis. This exam should not preclude additional follow-up of suspicious palpable abnormalities. Note on Anamika scores and lifetime risk: 1. A Anamika score greater than 3% is considered moderate risk. If this is the case, consider specialist referral to assess eligibility for a risk reducing agent. 2. If overall lifetime risk for the development of breast cancer is 20% or higher, the patient may qualify for future screening with alternating mammogram and breast MRI. [facility], , 10/03/2024 10:55 AM. Electronically signed and approved by: Amado Smith DO
== END | disposition home or self-care (01) ==
LOC: RADMAMWWP 07:56
PROVIDERS: ATTEND Internal Medicine
DX: Z12.31 Encounter for screening mammogram for malignant neoplasm of breast (principal); R92.333 Mammographic heterogeneous density, bilateral breasts; Z78.0 Asymptomatic menopausal state; Z80.3 Family history of malignant neoplasm of breast
CPT/HCPCS: 77063; 77067

== ENCOUNTER → 2025-03-13 | Outpatient (CLI) | payer MEDICARE | END | disposition home or self-care (01) | LOC: LABWHC1 11:05 | PROVIDERS: ATTEND Internal Medicine | DX: R41.3 Other amnesia (principal) | CPT/HCPCS: 36415; 82607; 82746; 84425; 85652 ==

== ENCOUNTER → 2025-03-20 | Outpatient (CLI) | payer MEDICARE ==
--- NOTE | 2025-03-20 11:54 | MR ---
EXAMINATION TYPE: MR brain wo/w con DATE OF EXAM: 03/20/2025 11:50 AM COMPARISON: None. CLINICAL INDICATION: Female, 74 years old with history of R41.3 OTHER AMNESIA, Memory loss. TECHNIQUE: Multi planar multi sequence imaging of the brain. CONTRAST: Patient received 6 mL intravenous Gadobutrol gadolinium contrast. Pre and post contrast en hanced images are obtained. FINDINGS: The ventricles, basal cisterns and sulci overlying the cerebral convexities are mildly enlarged. There is evidence of mild periventricular white matter ischemic demyelination. Remote deep white matter insults are also noted. No acute edema is seen on diffusion weighted imaging. There is no evidence for midline shift or mass effect. Acute intracranial hemorrhage or extra-axial collection is not evident. No enhancing lesions are seen. The paranasal sinuses and mastoid air cells are well-aerated. IMPRESSION: Age-related atrophic and chronic small vessel ischemic change. No acute intracranial process at this time. No enhancing lesions are seen. [facility], , 03/20/2025 11:52 AM
== END | disposition home or self-care (01) ==
LOC: RADMRIMAIN 11:09
PROVIDERS: ATTEND Internal Medicine
DX: N26.1 Atrophy of kidney (terminal) (principal); I67.82 Cerebral ischemia; R41.3 Other amnesia
CPT/HCPCS: 70553; A9585

== ENCOUNTER → 2025-06-05 | Outpatient (CLI) | payer MEDICARE | END | disposition home or self-care (01) | LOC: LABWHC1 11:45 | PROVIDERS: ATTEND Psychiatry & Neurology Neurology | DX: F03.90 Unspecified dementia, unspecified severity, without behavioral disturbance, psychotic disturbance, mood disturbance, and anxiety (principal) | CPT/HCPCS: 36415 ==